=== PATIENT | male | born 1965 | race Caucasian/White ===

== ENCOUNTER 2019-02-05 23:16 | Inpatient (IN) | payer SELFPAY ==
[~2019-02-05] VITALS: Ht 170.2 cm; Wt 78.0 kg
[2019-02-05 23:24] VITALS: Ht 170.2 cm; Wt 78.0 kg
[2019-02-06] VITALS (8 sets, daily range): BP systolic 016–110; BP diastolic 54–68
[2019-02-06 00:06] LABS: BASOPHIL % 0.3 % (0-2); PLATELET COUNT 187 x10^3mcL (130-400)
[2019-02-06 00:09] LABS: RED CELL DISTRIBUTION WIDTH 15.9 % (11.5-14.5)
[2019-02-06 00:27] LABS: CALCIUM 8.2 mg/dL (8.5-10.1); CARBON DIOXIDE 26.3 mmol/L (21-32); CHLORIDE SERUM 101 mmol/L (98-107); CREATININE SERUM 0.9 mg/dL (0.7-1.3); GFR1 > 60 mL/min; GLUCOSE SERUM 197 mg/dL (74-106); POTASSIUM SERUM 4.7 mmol/L (3.5-5.1); SODIUM SERUM 136 mmol/L (136-145)
[2019-02-06 00:32] LABS: ALKALINE PHOSPHATASE 71 U/L (46-116); ALT/SGPT 26 U/L (16-63); AST/SGOT 32 U/L (15-37); BILIRUBIN TOTAL 1.7 mg/dL (0.20-1.00); LIPASE 80 IU/L (73-393); TOTAL PROTEIN, SERUM 6.5 g/dL (6.4-8.2)
[2019-02-06 01:50] LABS: MAGNESIUM 1.9 mg/dL (1.8-2.4); PHOSPHOROUS 3.8 mg/dL (2.5-4.9)
[2019-02-06 01:51] LABS: CHOLESTEROL/HDL RATIO 3.1
[2019-02-06 06:57] LABS: microscopic required? NO
[2019-02-06 07:15] LABS: urine erythrocyte NEGATIVE (NEGATIVE)
[2019-02-06 07:26] LABS: AMPHETAMINE QUAL UR POSITIVE (See below)
[2019-02-06 08:24] LABS: BASOPHIL % 0.4 % (0-2); PLATELET COUNT 146 x10^3mcL (130-400)
[2019-02-06 08:31] LABS: CALCIUM 7.9 mg/dL (8.5-10.1); CARBON DIOXIDE 28.8 mmol/L (21-32); CHLORIDE SERUM 104 mmol/L (98-107); GLUCOSE SERUM 154 mg/dL (74-106); POTASSIUM SERUM 4.2 mmol/L (3.5-5.1); SODIUM SERUM 138 mmol/L (136-145)
[2019-02-06 08:35] LABS: RED CELL DISTRIBUTION WIDTH 15.7 % (11.5-14.5)
[2019-02-06 09:44] LABS: CREATININE SERUM 0.8 mg/dL (0.7-1.3); GFR1 > 60 mL/min
[2019-02-07 07:01] LABS: CALCIUM 7.4 mg/dL (8.5-10.1); CARBON DIOXIDE 27.4 mmol/L (21-32); CHLORIDE SERUM 106 mmol/L (98-107); CREATININE SERUM 0.8 mg/dL (0.7-1.3); GFR1 > 60 mL/min; GLUCOSE SERUM 127 mg/dL (74-106); POTASSIUM SERUM 4.3 mmol/L (3.5-5.1); SODIUM SERUM 138 mmol/L (136-145)
[2019-02-07 07:52] LABS: BASOPHIL % 0.6 % (0-2)
[2019-02-07 07:57] LABS: PLATELET COUNT 102 x10^3mcL (130-400); RED CELL DISTRIBUTION WIDTH 15.5 % (11.5-14.5)
[2019-02-07 08:12] VITALS: BP 101/58
[2019-02-07 11:51] VITALS: BP 122/67
[2019-02-07 16:51] VITALS: BP 105/59
[2019-02-07 21:40] VITALS: BP 106/60
[2019-02-08 04:13] VITALS: BP 101/55
[2019-02-08 06:30] LABS: CALCIUM 7.6 mg/dL (8.5-10.1); CHLORIDE SERUM 102 mmol/L (98-107); CREATININE SERUM 0.8 mg/dL (0.7-1.3); GFR1 > 60 mL/min; GLUCOSE SERUM 125 mg/dL (74-106); POTASSIUM SERUM 3.9 mmol/L (3.5-5.1); SODIUM SERUM 136 mmol/L (136-145)
[2019-02-08 07:36] LABS: BASOPHIL % 0.6 % (0-2)
[2019-02-08 07:37] LABS: PLATELET COUNT 90 x10^3mcL (130-400); RED CELL DISTRIBUTION WIDTH 15.9 % (11.5-14.5)
[2019-02-08 08:39] VITALS: BP 106/59
[2019-02-08 12:15] VITALS: BP 111/62
[2019-02-08] MEDS ORDERED: PROTONIX40 MG PO ×2 (13:04→13:21)
[2019-02-08] MEDS ORDERED: AMOXICILLIN500 M1 PO (13:05)
[2019-02-08] MEDS ORDERED: CLARITHROMYCIN500 M1 PO ×2 (13:06→13:10)
[2019-02-08] MEDS ORDERED: LAC PO (13:07)
[2019-02-08 13:36] VITALS: BP 111/62
== END 2019-02-08 16:10 | disposition home or self-care (01) | DRG 377 ==
LOC: ED 23:16 → DU 02-06 01:20
PROVIDERS: Emergency Medicine; Internal Medicine Gastroenterology; ADMIT Family Medicine
PROC: 0W3P8ZZ Control Bleeding in Gastrointestinal Tract, Via Natural or Artificial Opening Endoscopic (ICD-10-PCS; principal; 2019-02-06 12:30)
PROC: 0DB68ZX Excision of Stomach, Via Natural or Artificial Opening Endoscopic, Diagnostic (ICD-10-PCS; 2019-02-06 12:30)
PROC: 06L38CZ Occlusion of Esophageal Vein with Extraluminal Device, Via Natural or Artificial Opening Endoscopic (ICD-10-PCS; 2019-02-06 12:30)
DX: K92.2 Gastrointestinal hemorrhage, unspecified (principal); N17.0 Acute kidney failure with tubular necrosis; D62 Acute posthemorrhagic anemia; R65.10 Systemic inflammatory response syndrome (SIRS) of non-infectious origin without acute organ dysfunction; E44.0 Moderate protein-calorie malnutrition; K76.6 Portal hypertension; I85.00 Esophageal varices without bleeding; E11.9 Type 2 diabetes mellitus without complications; E83.51 Hypocalcemia; F10.10 Alcohol abuse, uncomplicated; Y90.9 Presence of alcohol in blood, level not specified; Z68.29 Body mass index [BMI] 29.0-29.9, adult
CPT/HCPCS: 43235; 82962; 83880; C9113; G0480; J1200; J1610; J2250; J2310; J2405; J3010; J3490; J7030; Q0092